=== PATIENT | female | born 1930 | race Caucasian/White ===

== ENCOUNTER → 2016-09-22 | Outpatient (CLI) | payer MEDICARE ==
[2014-11-11 13:56] VITALS: BP 201/84
[~2016-09-22] MED LIST: NITR100C62 PO; ONDA4TAB10 SL
[2016-09-22 09:44] LABS: BASO # 0.1 x10^3/uL (0.0-0.2); BASO % 1 % (0-3); EOS # 0.2 x10^3/uL (0.0-0.7); EOS % 3 % (0-3); HEMATOCRIT 38.3 % (36.0-47.0); HEMOGLOBIN 12.4 g/dL (12.0-15.5); LYMPH % 33 % (24-48); MEAN CORPUSCULAR HEMOGLOBIN 30 pg (25-35); MEAN CORPUSCULAR HGB CONC 32 g/dL (31-37); MEAN CORPUSCULAR VOLUME 93 fL (79-100); MONO # 0.5 x10^3/uL (0.0-1.1); MONO % 8 % (0-9); NEUT # 3.4 x10^3uL (1.8-7.7); NEUT % 55 % (31-73); PLATELET COUNT 174 x10^3/uL (140-400); RED BLOOD COUNT 4.11 x10^6/uL (3.50-5.40); RED CELL DISTRIBUTION WIDTH 13.9 % (11.5-14.5); WHITE BLOOD COUNT 6.2 x10^3/uL (4.0-11.0)
== END | disposition home or self-care (01) ==
LOC: LAB 09:11
PROVIDERS: ATTEND Anesthesiology Pain Medicine
DX: G89.18 Other acute postprocedural pain (principal)
CPT/HCPCS: 36415; 85027; 87641

== ENCOUNTER 2017-01-22 10:27 | Inpatient (IN) | payer MEDICARE ==
[~2017-01-22] VITALS: Ht 160 cm; Wt 73.3 kg
--- NOTE | 2017-01-22 11:49 | PHYS DOC ---
Past History Past Medical History: Arthritis, Hypertension, Other Past Surgical History: Appendectomy, Other Alcohol Use: None Drug Use: None Adult General Chief Complaint Chief Complaint: HIP PAIN HPI HPI Jaqueline states that she had a fall 1 week ago. She has been able to walk during the past week up to the past 3 days. She states that she was sitting in her chair and when she stood she had moderate dull pain in her thigh that was associated with difficulty walking. She states that since that time she has been unable to bear weight on R leg. She does not have pain Review of Systems Review of Systems Constitutional: Denies fever or chills [] Eyes: Denies change in visual acuity, redness, or eye pain [] HENT: Denies nasal congestion or sore throat [] Respiratory: Denies cough or shortness of breath [] Cardiovascular: No additional information not addressed in HPI [] GI: Denies abdominal pain, nausea, vomiting, bloody stools or diarrhea [] : Denies dysuria or hematuria [] Musculoskeletal: Denies back pain or joint pain [] Integument: Denies rash or skin lesions [] Neurologic: Denies headache, focal weakness or sensory changes [] Endocrine: Denies polyuria or polydipsia [] Allergies Allergies Allergies Coded Allergies Type Severity Reaction Last Updated Verified Penicillins Allergy Unknown 01/22/17 Yes Physical Exam Physical Exam Constitutional: Well developed, well nourished, no acute distress, non-toxic appearance. [] HENT: Normocephalic, atraumatic, bilateral external ears normal, oropharynx moist, no oral exudates, nose normal. [] Eyes: PERRLA, EOMI, conjunctiva normal, no discharge. [] Neck: Normal range of motion, no tenderness, supple, no stridor. [] Cardiovascular:Heart rate regular rhythm, no murmur [] Lungs & Thorax: Bilateral breath sounds clear to auscultation [] Abdomen: Bowel sounds normal, soft, no tenderness, no masses, no pulsatile masses. [] Skin: Warm, dry, no erythema, no rash. [] Back: No tenderness, no CVA tenderness. [] Extremities: no cyanosis, no clubbing, ROM intact, no edema. No pain with ROM of the R hip. No obvious signs of injury. Moderate TTP over the lateral hip. Pt was unable to bear weight with assistance Neurologic: Alert and oriented X 3, normal motor function, normal sensory function, no focal deficits noted. [] Psychologic: Affect normal, judgement normal, mood normal. [] Current Patient Data Vital Signs Vital Signs Date Time Temp Pulse Resp B/P (MAP) Pulse Ox O2 Delivery O2 Flow Rate FiO2 01/22/17 10:33 98.3 79 18 94 Room Air EKG EKG [] Radiology/Procedures Radiology/Procedures R hip and femur xray: No acute disease - [place] Course & Med Decision Making Course & Med Decision Making Jaqueline was unable to walk with assistance and she is from assisted living. Her PCP is Dr. Mann, who does not admit. The hospitalist was contacted by phone. Dr. Parikh would like Jaqueline admitted under inpatient status Dragon Disclaimer Dragon Disclaimer This chart was dictated in whole or in part using Voice Recognition software in a busy, high-work load, and often noisy Emergency Department environment. It may contain unintended and wholly unrecognized errors or omissions. Departure Departure: Impression: Primary Impression: Hip pain Disposition: ADMITTED INPATIENT Condition: STABLE Referrals: CARMINE MANN DO (PCP) Problem Qualifiers Primary Impression: Hip pain Laterality: right Qualified Codes: M25.551 - Pain in right hip BARBIE FAITH MD Jan 22, 2017 11:48
[2017-01-22 12:00] LABS: HEMATOCRIT 34.9 % (36.0-47.0); HEMOGLOBIN 11.4 g/dL (12.0-15.5); RED BLOOD COUNT 3.86 x10^6/uL (3.50-5.40); RED CELL DISTRIBUTION WIDTH 13.8 % (11.5-14.5); WHITE BLOOD COUNT 5.5 x10^3/uL (4.0-11.0)
[2017-01-22 12:03] LABS: CALCIUM 8.5 mg/dL (8.5-10.1); CREATININE 1.7 mg/dL (0.6-1.0); GFR 28.5; POTASSIUM 4.5 mmol/L (3.5-5.1)
[2017-01-22] MEDS ORDERED: ACETAMINOPHEN 325 MG TABLET PO PRN (12:30)
[2017-01-22] MEDS ORDERED: ONDANSETRON PF 4 MG/2 ML VIAL. IV PRN (12:30)
[2017-01-22] MEDS ORDERED: MORPHINE SULFATE 2 MG/ML DISP.SYRIN. IV PRN (12:30)
--- NOTE | 2017-01-22 13:22 | RAD ---
Indication hip pain. AP and lateral views of the right femur were obtained as well as AP and lateral views of the right hip. Views of the femur show no acute finding. There are some degenerative changes involving the knee. This involves particularly the medial joint space compartment. There is suspect chondrocalcinosis. Vascular calcification is noted. Views of the right hip demonstrate mild degenerative change manifested as some joint space compartment narrowing. An acute finding is not seen. IMPRESSION: Chronic changes involving the knee and hip. No acute finding seen
[2017-01-22 16:15] VITALS: BP 131/85
[2017-01-22] MEDS: IV NORMAL SALINE 1,000ML 1,000 ML IV SCH (17:16)
--- NOTE | 2017-01-22 17:49 | NUR ---
PT is able to verbalize understanding of poc and orientation to unit. PT had a fall with no injury than hip started to hurt. PT will not bear wt on leg. Kasie ALVARADO
[2017-01-22] MEDS ORDERED: GABA-585 PO (17:58)
[2017-01-22] MEDS ORDERED: CLOB15CR TP (19:15)
[2017-01-22] MEDS ORDERED: OXYC-323 PO (19:15)
[2017-01-22] MEDS ORDERED: MOME15CR13 TP (19:15)
[2017-01-22] MEDS ORDERED: IBUP400T18 PO (19:15)
[2017-01-22] MEDS ORDERED: DICL100G18 TP (19:15)
[2017-01-22] MEDS ORDERED: ASPI-612 PO (19:15)
[2017-01-22] MEDS ORDERED: LIDO700A39 TP (19:15)
[2017-01-22] MEDS ORDERED: MEMA7CAP PO (19:15)
[2017-01-22] MEDS ORDERED: LISI10TA2 PO (19:15)
[2017-01-22] MEDS ORDERED: CRAN500C6 PO (19:15)
[2017-01-22] MEDS ORDERED: LOPE2CAP88 PO ×2 (19:15)
[2017-01-22] MEDS ORDERED: SOLI5TAB2 PO (19:15)
[2017-01-22] MEDS ORDERED: SIME100L PO (19:15)
[2017-01-22] MEDS ORDERED: MAGN400O7 PO (19:15)
[2017-01-22] MEDS ORDERED: MAGNESIUM HYDROXIDE 2,400 MG/30 ML ORAL.SUSP. PO PRN (19:30)
[2017-01-22] MEDS ORDERED: LOPERAMIDE 2 MG CAPSULE PO PRN ×2 (19:30)
[2017-01-22] MEDS ORDERED: ASPIRIN ENTERIC COATED 81 MG TABLET.DR. PO PRN (19:30)
[2017-01-22] MEDS ORDERED: LIDOCAINE (700MG/PATCH) PATCH. TP PRN (19:30)
[2017-01-22 19:42] VITALS: BP 155/79
[2017-01-22] MEDS ORDERED: SIMETHICONE 80 MG TAB.CHEW PO PRN (20:15)
[2017-01-22] MEDS: DICLOFENAC SODIUM 1% TOPICAL GEL 100GM TUBE. TP SCH (20:33)
[2017-01-22] MEDS: GABAPENTIN 100 MG CAPSULE. PO SCH (20:34)
[2017-01-22] MEDS: IBUPROFEN 600 MG TABLET. PO PRN (20:34)
[2017-01-22] MEDS: CLOBETASOL EMOLLIENT 0.05% TOPICAL CREAM 15GM TUBE. TP SCH (21:00)
[2017-01-22] MEDS: oxyCODONE/APAP 5/325 1 TAB TABLET PO PRN (23:01)
[2017-01-22 23:15] VITALS: BP 177/84
[2017-01-23] MEDS: IV NORMAL SALINE 1,000ML 1,000 ML IV SCH ×2 (03:00→04:59)
--- NOTE | 2017-01-23 03:40 | ACF ---
Admission Criteria Forms PAIN MANAGEMENT GR Clinical Indications for Admission to Inpatient Care (Place 'X' for any and all applicable criteria): Hospital admission is needed for appropriate care of the patient because of 1 or more of the following are present (1)(2)(3)(4)(5): [ ]I. Severe pain requiring acute inpatient management as indicated by 1 or more of the following (2)(5)(10): [ ]a) Continuous or frequent (eg, every 2 to 4 hours) parenteral analgesics required [A] [ ]b) Necessity (ie, alternative approaches not effective) for analgesic regimen that can only be performed or initiated in inpatient setting [X]II. Pain causing debilitation to the point of inability to function or be supported at any other level of care [ ]III. Severe side effects from pain medications as indicated by ANY ONE of the following (12)(13)(14)(15): [ ]a) Uncontrollable seizures [ ]b) Cardiac arrhythmias of immediate concern [ ]c) Dehydration that is severe or persistent [ ]d) Vomiting that is severe or persistent [ ]e) Altered mental status that is severe or persistent [ ]f) Obstipation with inadequate GI function to maintain nutrition The original [employer] content created by [employer] has been revised. The portions of the content which have been revised are identified through the use of italic text or in bold, and [facility] has neither reviewed nor approved the modified material. All other unmodified content is copyright [employer]. Please see references footnoted in the original [employer] edition 2016 Admission Criteria Met?: Yes CORIN TODD Jan 23, 2017 03:40
[2017-01-23] MEDS: oxyCODONE/APAP 5/325 1 TAB TABLET PO PRN (05:04)
[2017-01-23 05:27] VITALS: BP 135/73
[2017-01-23 06:36] LABS: BASO # 0.1 x10^3/uL (0.0-0.2); BASO % 1 % (0-3); EOS # 0.4 x10^3/uL (0.0-0.7); EOS % 6 % (0-3); HEMOGLOBIN 11.2 g/dL (12.0-15.5); LYMPH % 31 % (24-48); MEAN CORPUSCULAR HEMOGLOBIN 29 pg (25-35); MEAN CORPUSCULAR HGB CONC 33 g/dL (31-37); MEAN CORPUSCULAR VOLUME 89 fL (79-100); MONO # 0.6 x10^3/uL (0.0-1.1); MONO % 9 % (0-9); NEUT # 3.4 x10^3uL (1.8-7.7); NEUT % 54 % (31-73); PLATELET COUNT 214 x10^3/uL (140-400); RED CELL DISTRIBUTION WIDTH 13.6 % (11.5-14.5); WHITE BLOOD COUNT 6.4 x10^3/uL (4.0-11.0)
[2017-01-23 06:48] LABS: CALCIUM 8.5 mg/dL (8.5-10.1); CREATININE 1.4 mg/dL (0.6-1.0); GFR 35.7; POTASSIUM 4.1 mmol/L (3.5-5.1)
[2017-01-23] MEDS: GABAPENTIN 100 MG CAPSULE. PO SCH (08:34)
[2017-01-23] MEDS: DICLOFENAC SODIUM 1% TOPICAL GEL 100GM TUBE. TP SCH (08:35)
[2017-01-23] MEDS: CLOBETASOL EMOLLIENT 0.05% TOPICAL CREAM 15GM TUBE. TP SCH (08:35)
[2017-01-23] MEDS: IBUPROFEN 600 MG TABLET. PO PRN (08:35)
[2017-01-23] MEDS ORDERED: OXYBUTYNIN CHLORIDE 5 MG TABLET PO SCH (09:00)
[2017-01-23] MEDS ORDERED: LISINOPRIL 10 MG TABLET PO SCH (09:00)
[2017-01-23] MEDS ORDERED: MEMANTINE 5 MG TABLET. PO SCH (09:00)
[2017-01-23] MEDS ORDERED: NON FORMULARY ITEM (Cranberry Extract (Cranberry) 500 MG) PO SCH (09:00)
[2017-01-23] MEDS ORDERED: TRIAMCINOLONE ACETONIDE 0.1% TOPICAL CREAM 15GM TUBE. TP SCH (09:00)
--- NOTE | 2017-01-23 09:11 | RAD ---
INDICATION: right sided lumbar radiculopathy and pain right hip COMPARISON: 07/13/2015 TECHNIQUE: Axial CT images were obtained through the lumbar spine without contrast. FINDINGS: There has been interval postkyphoplasty changes to the previously identified fracture at the L2 vertebral body. This fracture is moderate in severity with some retropulsion identified. No definite acute fracture or dislocation. Moderate hiatal hernia partially seen. Severe calcific atherosclerosis. Colonic diverticulosis. There are couple of nonobstructive bilateral renal stones. For example on the left measuring up to 13 mm. T12-L1: No significant central canal or neural foraminal stenosis. L1-2: Disc osteophyte complex indenting the ventral aspect of the thecal sac without significant central canal stenosis. Mild left-sided neural foraminal narrowing. L2-3: The patient's L2 fracture and osteophytes contribute to moderate central canal stenosis. Moderate to severe right and left neural foraminal stenosis. L3-4: Broad-based posterior disc protrusion with ligamentum flavum and facet hypertrophy. Mild central canal narrowing. Mild to moderate neural foraminal stenosis. L4-5: Facet and ligamentum flavum hypertrophy. Broad-based posterior disc bulge with mild central canal narrowing. Mild bilateral neural foraminal narrowing. L5-S1: Disc osteophyte complex without significant central canal narrowing. Moderate right and [id number] left neural foraminal stenosis IMPRESSION: No definite acute fracture or dislocation. Repeat demonstration of L2 compression fracture with interval postkyphoplasty changes. There is retropulsion into the central canal with resultant central canal narrowing. In addition there is multilevel neural foraminal stenosis identified throughout the lumbar spine as described above. PQRS Compliance Statement: One or more of the following individualized dose reduction techniques were utilized for this examination: 1. Automated exposure control 2. Adjustment of the mA and/or kV according to patient size 3. Use of iterative reconstruction technique
--- NOTE | 2017-01-23 09:22 | RAD ---
Indication fall. Pain in the right pelvis. Axial images through the pelvis were obtained and reformatted in the coronal and sagittal planes. Images were obtained and bony algorithm. In the ventral abdominal wall there is a small hernia containing only fat which appears uncomplicated. Benign-appearing calcifications are noted in the pelvis. Several diverticula are seen associated with the sigmoid colon. A significant soft tissue finding is not seen. There are degenerative changes at L5-S1. Facet degenerative changes are noted at the same level. No acute finding is seen involving the pelvis or either hip IMPRESSION: No acute bony finding PQRS Compliance Statement: One or more of the following individualized dose reduction techniques were utilized for this examination: 1. Automated exposure control 2. Adjustment of the mA and/or kV according to patient size 3. Use of iterative reconstruction technique
[2017-01-23 10:51] VITALS: BP 112/71
--- NOTE | 2017-01-23 13:18 | RAD ---
INDICATION:pain right hip after a fall with inability to walk COMPARISON: CT from earlier same day FINDINGS: 25 mCi of technetium 99m MDP injected intravenously and time was allowed for osseous uptake. Images were then obtained of the pelvis and hips. There are some patchy foci of increased radiotracer uptake seen within the partially visualized lumbar spine. There is a region of increased radiotracer uptake seen within the right proximal femur including within the right greater and lesser trochanter region. IMPRESSION: Increased radiotracer uptake is seen within the right proximal femur including at the greater and lesser trochanter region. Given this region of increased radiotracer uptake causes such as a bone contusion or occult fracture is possible. If further characterization is desired MRI could be obtained. There is also some patchy increased radiotracer uptake seen within a portion of the lower lumbar spine. Could be degenerative in nature or secondary to the patient's known L2 fracture with postkyphoplasty changes.
[2017-01-23 14:42] VITALS: BP 132/76
--- NOTE | 2017-01-23 15:04 | PDOC ---
SUBJECTIVE: The patient continues to complain of right hip pain although she was able to put on weight and using a walker. CT scan of the pelvis did not show any however the bone scan with increased uptake at the proximal end of the femur suggesting possible fracture we have discussed the various options available and the major case detective suggested regarding her to [facility] to do the MRI and consult orthopedic surgeon. OBJECTIVE: Problems: Hip pain with difficulty walking Pain in the right hip difficulty walking Vital Signs: Vital Signs Date Time Temp Pulse Resp B/P (MAP) Pulse Ox O2 Delivery O2 Flow Rate FiO2 01/23/17 10:51 98.1 76 20 112/71 (85) 92 Room Air I & O Intake and Output 01/23/17 07:00 Intake Total 1569 ml Output Total 150 ml Balance 1419 ml Intake Oral 800 ml IV Total 769 ml Output Urine Total 150 ml # Voids 2 Labs: Laboratory Tests Test 01/22/17 11:45 01/23/17 05:56 White Blood Count 5.5 x10^3/uL (4.0-11.0) 6.4 x10^3/uL (4.0-11.0) Red Blood Count 3.86 x10^6/uL (3.50-5.40) 3.80 x10^6/uL (3.50-5.40) Hemoglobin 11.4 g/dL (12.0-15.5) 11.2 g/dL (12.0-15.5) Hematocrit 34.9 % (36.0-47.0) 34.0 % (36.0-47.0) Mean Corpuscular Volume 90 fL (79-100) 89 fL (79-100) Mean Corpuscular Hemoglobin 29 pg (25-35) 29 pg (25-35) Mean Corpuscular Hemoglobin Concent 33 g/dL (31-37) 33 g/dL (31-37) Red Cell Distribution Width 13.8 % (11.5-14.5) 13.6 % (11.5-14.5) Platelet Count 211 x10^3/uL (140-400) 214 x10^3/uL (140-400) Sodium Level 140 mmol/L (136-145) 139 mmol/L (136-145) Potassium Level 4.5 mmol/L (3.5-5.1) 4.1 mmol/L (3.5-5.1) Chloride Level 107 mmol/L (98-107) 105 mmol/L (98-107) Carbon Dioxide Level 31 mmol/L (21-32) 27 mmol/L (21-32) Anion Gap 2 (6-14) 7 (6-14) Blood Urea Nitrogen 21 mg/dL (7-20) 18 mg/dL (7-20) Creatinine 1.7 mg/dL (0.6-1.0) 1.4 mg/dL (0.6-1.0) Estimated GFR (Cockcroft-Gault) 28.5 35.7 Glucose Level 93 mg/dL (70-99) 80 mg/dL (70-99) Calcium Level 8.5 mg/dL (8.5-10.1) 8.5 mg/dL (8.5-10.1) Neutrophils (%) (Auto) 54 % (31-73) Lymphocytes (%) (Auto) 31 % (24-48) Monocytes (%) (Auto) 9 % (0-9) Eosinophils (%) (Auto) 6 % (0-3) Basophils (%) (Auto) 1 % (0-3) Neutrophils # (Auto) 3.4 x10^3uL (1.8-7.7) Lymphocytes # (Auto) 2.0 x10^3/uL (1.0-4.8) Monocytes # (Auto) 0.6 x10^3/uL (0.0-1.1) Eosinophils # (Auto) 0.4 x10^3/uL (0.0-0.7) Basophils # (Auto) 0.1 x10^3/uL (0.0-0.2) Physical Exam: Constitutional: Well developed, well nourished, no acute distress, non-toxic appearance. HENT: Normocephalic, atraumatic, bilateral external ears normal, oropharynx moist, no oral exudates, nose normal. Eyes: CAYETANO, EOMI, conjunctiva normal, no discharge. Neck: Normal range of motion, no tenderness, supple, no stridor. Cardiovascular: JVP not elevated. No carotid bruit. Nor precordial pulsations or heaves. S1 N,S2N. No murmurs. No rubs or clicks. Thorax and Lungs: NOrmal respiration. Normal chest expansion. Normal to percuss. Equal breath sounds. No crackles. No wheeze. Abdomen: Bowel sounds normal, soft, no tenderness, no masses, no pulsatile masses. Skin: Warm, dry, no erythema, no rash. Back: No tenderness, no CVA tenderness. Extremities: Intact distal pulses, no tenderness, no cyanosis, no clubbing, ROM intact, no edema. Neurologic: Alert and oriented X 3, normal motor function, normal sensory function, no focal deficits noted. Psychologic: Affect normal, judgement normal, mood normal. ASSESSMENT: 1 right hip pain 2. Difficulty walking 3. Bone scan showed increased uptake in the proximal end of the right femurr PLAN: 1. Arranged to transfer the patient to [facility] 2. Age for an MRI of the right hip joint 3. Consult the orthopedic surgeon to decide whether any surgical intervention is needed CHARITO ADAMS MD Jan 23, 2017 15:03
--- NOTE | 2017-01-23 16:00 | NUR ---
Patient transferred to [facility] room 432 for MRI and ortho consult, r/o right femur fracture. Report called to JENNY Bello. Patient transported via [facility]. Belongings and chart sent with patient.
--- NOTE | 2017-01-24 12:24 | PDOC1 ---
History of Present Illness Reason for Visit: pain the right hip and inability to walk History of Present Illness The patient is a resident at [facility]. She developed pain in her hip with inability to walk about a week ago She came to the ER of [facility] where an X ray of her right hip was negative for fracture . She was admitted for further evaluation Has mary ann a CT Scan of her lumbosacral spine showed old compression fracture treated with vertebroplasty and CT Scan of the pelvis and both hip joints were unremarkable Bone scan of the right hip showed increased uptake at the proximal end of the right femur and therefore the patient was transferred to [facility] TO DO AN mri of the area and consult the orthopedic surgeon Chief Complaint: HIP PAIN Allergies: Coded Allergies: Penicillins (Verified Allergy, Unknown, 01/22/17) Past Medical History Cardiac: No pertinent hx, CHF, HTN Pulmonary: No pertinent hx GI: No pertinent hx Heme/Onc: No pertinent hx Hepatobiliary: No pertinent hx Psych: No pertinent hx Musculoskeletal: low back pain (Chronic), Osteoarthritis Infectious disease: No pertinent hx ENT: No pertinent hx Renal/: Chronic renal insuff Past Surgical History: Other (vertebroplasty) Family History: No pertinent hx Past Social History Smoke: No Alcohol: none Lives: Alone Review of Systems Review Of Systems Fourteen system , review of systems has been reviewed. See HPI for pertinent positives and negative responses, other alexis all other systems are negative, non pertinent or non contributory Allergies: Coded Allergies: Penicillins (Verified Allergy, Unknown, 01/22/17) Medications Current Medications Ondansetron HCl (Zofran) 4 mg PRN Q4HRS PRN IV NAUSEA/VOMITING; Start 01/22/17 at 12:30; Stop 01/23/17 at 12:29; Status DC Morphine Sulfate (Morphine 2mg Syringe) 2 mg PRN Q2HR PRN IV PAIN; Start at 12:30; Stop 01/23/17 at 10:07; Status DC Acetaminophen (Tylenol) 650 mg PRN Q4HRS PRN PO FEVER; Start 01/22/17 at 12:30 ; Stop 01/23/17 at 12:29; Status DC Sodium Chloride 1,000 ml @ 100 mls/hr Q10H IV Last administered on 01/23/17t 04:59; Start 01/22/17 at 17:00; Stop 01/23/17 at 16:54; Status DC Aspirin (Aspirin Enteric Coated) 81 mg PRN DAILY PRN PO PAIN; Start 01/22/17 at 19:30; Stop 01/23/17 at 16:54; Status DC Diclofenac Sodium (Voltaren) 1 ming BID TP Last administered on 01/23/17 08:35 ; Start 01/22/17 at 21:00; Stop 01/23/17 at 16:54; Status DC Gabapentin (Neurontin) 100 mg BID PO Last administered on 01/23/17 08:34; Start 01/22/17 at 21:00; Stop 01/23/17 at 16:54; Status DC Ibuprofen (Motrin) 600 mg PRN Q6HRS PRN PO PAIN Last administered on 01/23/17 08:35; Start 01/22/17 at 19:30; Stop 01/23/17 at 16:54; Status DC Lidocaine (Lidoderm) 1 patch PRN DAILY PRN TP PAIN; Start 01/22/17 at 19:30; Stop 01/23/17 at 16:54; Status DC Lisinopril (Prinivil) 10 mg DAILY PO Last administered on 01/23/17 08:35; Start 01/23/17 at 09:00; Stop 01/23/17 at 16:54; Status DC Loperamide HCl (Imodium) 2 mg PRN Q2HR PRN PO DIARRHEA; Start 01/22/17 at 19:30 ; Stop 01/23/17 at 16:54; Status DC Loperamide HCl (Imodium) 4 mg PRN DAILY PRN PO DIARRHEA; Start 01/22/17 at 19: 30; Stop 01/23/17 at 16:54; Status DC Magnesium Hydroxide (Milk Of Magnesia) 2,400 mg PRN Q72HRS PRN PO CONSTIPATION ; Start 01/22/17 at 19:30; Stop 01/23/17 at 16:54; Status DC Oxycodone/ Acetaminophen (Percocet 5/325) 1 tab PRN Q6HRS PRN PO PAIN Last administered on 01/23/17 05:04; Start 01/22/17 at 19:30; Stop 01/23/17 at 16:54 ; Status DC Clobetasol Propionate 1 ming BID TP ; Start 01/22/17 at 21:00; Stop 01/23/17 at 16:54; Status DC Non-Formulary Medication 500 mg DAILY PO ; Start 01/23/17 at 09:00; Status UNV Memantine (Namenda) 2.5 mg BID PO Last administered on 01/23/17 08:34; Start 01/23/17 at 09:00; Stop 01/23/17 at 16:54; Status DC Triamcinolone Acetonide (Kenalog) 1 ming DAILY TP ; Start 01/23/17 at 09:00; Stop 01/23/17 at 16:54; Status DC Simethicone (Gas-X) 80 mg PRN Q4HRS PRN PO HEARTBURN / GAS; Start 01/22/17 at 20:15; Stop 01/23/17 at 16:54; Status DC Oxybutynin Chloride (Ditropan) 5 mg BID PO Last administered on 01/23/17 08:34 ; Start 01/23/17 at 09:00; Stop 01/23/17 at 16:54; Status DC Active Scripts Active Reported Elocon (Mometasone Furoate) 15 Gm Cream..g. 1 Ming TP DAILY Ibuprofen 400 Mg Tablet 1.5 Tab PO PRN Q6HRS PRN Lidocaine 1 Each Adh..patch 1 Each TP PRN DAILY PRN Vesicare (Solifenacin Succinate) 5 Mg Tablet 1 Tab PO DAILY Cranberry (Cranberry Extract) 500 Mg Capsule 500 Mg PO DAILY Namenda Xr (Memantine Hcl) 7 Mg Cap.spr.24 7 Mg PO DAILY Clobetasol Propionate 15 Gm Cream..g. 1 Ming TP BID Lisinopril 10 Mg Tablet 1 Tab PO DAILY Aspirin Ec (Aspirin) 81 Mg Tablet.dr 1 Tab PO DAILY PRN Imodium A-D (Loperamide HCl) 2 Mg Capsule 4 Mg PO PRN DAILY PRN Percocet 5-325 Mg Tablet (Oxycodone Hcl/Acetaminophen) 1 Each Tablet 1 Tab PO PRN Q6HRS PRN Imodium A-D (Loperamide HCl) 2 Mg Capsule 2 Mg PO PRN PRN Simethicone 100 Ml Liquid 30 Ml PO PRN Q4HRS PRN Voltaren (Diclofenac Sodium) 100 Gm Gel..gram. 2 Gm TP BID Milk Of Magnesia (Magnesium Hydroxide) 400 Mg/5 Ml Oral.susp 30 Ml PO PRN Q72HRS PRN Gabapentin 100 Mg Capsule 100 Mg PO BID Exam Vital Signs Vital Signs Date Time Temp Pulse Resp B/P (MAP) Pulse Ox O2 Delivery O2 Flow Rate FiO2 01/23/17 14:42 98.0 73 20 132/76 (94) 96 Room Air General Appearance: Alert, Oriented X3, No acute distress HEENT: Atraumatic, PERRLA, EOMI Respiratory: Clear to auscultation, Normal air movement Heart: Regular rate, Normal S1, Normal S2, No murmurs, Rubs Cardiac: HTN Abdominal: Normal bowel sounds, Soft, No tenderness Extremities: No clubbing, No cyanosis, No edema Skin: No rashes, No breakdown Neuro: Other (The patient is unable to walk due to pain inthe right hip joint) Psych/Mental Status: Mental status NL, Mood NL Assessment/Plan Assessment/Plan Right hip pain with abnormal radioisotope intake at the proximal end of the right femur Plan is to 1. continue I V Fluid 2. continue with pain management 3. arrange for right hip and right femur MRI 4. To consult the orthopedic surgeon once the MRI report is available COURSE Allergies Coded Allergies Type Severity Reaction Last Updated Verified Penicillins Allergy Unknown 01/22/17 Yes I & O 01/23/17 23:59 Intake Total 1549 ml Balance 1549 ml Vital Signs Date Time Temp Pulse Resp B/P (MAP) Pulse Ox O2 Delivery O2 Flow Rate FiO2 01/23/17 14:42 98.0 73 20 132/76 (94) 96 Room Air CHARITO ADAMS MD Jan 24, 2017 12:24
== END 2017-01-23 16:00 | disposition short-term general hospital (02) | DRG 555 ==
LOC: ER 10:27 → 1 SOUTH 12:22 → OBSVTOIN 12:22
PROVIDERS: ADMIT Internal Medicine; ATTEND Internal Medicine
DX: M25.551 Pain in right hip (principal); N17.0 Acute kidney failure with tubular necrosis; E43 Unspecified severe protein-calorie malnutrition; I10 Essential (primary) hypertension; M19.90 Unspecified osteoarthritis, unspecified site; R26.2 Difficulty in walking, not elsewhere classified; Z90.49 Acquired absence of other specified parts of digestive tract; Z88.0 Allergy status to penicillin
CPT/HCPCS: 36415; 72131; 72192; 73502; 73552; 78300; 80048; 85027; 87641; 96374; A9503; 99285-25; J7030

== ENCOUNTER → 2018-05-24 | Outpatient (CLI) | payer MEDICARE ==
[~2018-05-24] MED LIST changes: +ASPI-612 PO; +CLOB15CR TP; +CRAN500C6 PO; +DICL100G18 TP; +GABA-585 PO; +IBUP400T18 PO; +LIDO700A39 TP; +LISI10TA2 PO; +LOPE2CAP88 PO; +MAGN400O7 PO; +MEMA7CAP PO; +MOME15CR13 TP; +OXYC-323 PO; +SIME100L PO; +SOLI5TAB2 PO
--- NOTE | 2018-05-24 10:41 | RAD ---
ESOPHOGRAM/BARIUM SWALLOW History: Dysphagia, feels like food getting stuck for a few months, history of previous esophageal dilatation Comparison: None. Findings: Barium esophagram was performed. Bowl Turner radiograph was performed. There is airspace opacity of the left lung base not clearly seen previously. There is suspected emphysema. There were tertiary contractions most notable of the mid to distal esophagus although otherwise effective esophageal motility. Esophagus is not significantly dilated. There is compression upon the mid esophagus by the aortic arch. There is a small sliding hiatal hernia, associated mild stricture formation without significant flow limitation. Fluoroscopy time: 1.3 minutes, 113 images Impression: 1. 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 There is small sliding hiatal hernia, minimal associated stricture without significant flow limitation. 2. There is some airspace opacity at the left lung base possibly infiltrate not clearly seen on previous chest radiograph for which short-term follow-up such as in 2 months advised. There is suspected emphysema. Electronically signed by: Pavel Miller MD (05/24/2018 10:38 AM) [id number]
== END | disposition home or self-care (01) ==
LOC: RAD 08:16
PROVIDERS: ATTEND Internal Medicine Gastroenterology
DX: K22.8 Other specified diseases of esophagus (principal); K44.9 Diaphragmatic hernia without obstruction or gangrene
CPT/HCPCS: 74220

== ENCOUNTER 2019-05-26 10:54 | Emergency (ER) | payer MEDICARE ==
[~2019-05-26] VITALS: Ht 312.4 cm; Wt 73.0 kg
[~2019-05-26 10:54] MED LIST changes: +LIDO700A21 TP; -LIDO700A39 TP; +LOPE-101 PO; -LOPE2CAP88 PO; -OXYC-323 PO; +OXYC1TAB15 PO
--- NOTE | 2019-05-26 11:30 | RAD ---
EXAM: Head CT without contrast. HISTORY: Headache. TECHNIQUE: Computed tomographic images of the head were obtained without contrast.. *One or more of the following individualized dose reduction techniques were utilized for this examination: 1. Automated exposure control. 2. Adjustment of the mA and/or kV according to patient size. 3. Use of iterative reconstruction technique. COMPARISON: 08/14/2014. FINDINGS: There is no acute or subacute extra-axial or intraparenchymal hemorrhage. There is no mass effect or midline shift. There is no hydrocephalus. There are areas of decreased attenuation within the cerebral white matter, nonspecific and likely related to chronic small vessel disease. There is cerebral volume loss. There is evidence of lens surgery. There is mild mucosal thickening involving the sphenoid sinus. There is a tiny amount of fluid within the mastoid air cells. No suspicious calvarial lesion is seen. IMPRESSION: 1. No acute intracranial finding. Note is made that MRI is more sensitive for acute infarction. 2. Decreased attenuation within the cerebral white, likely due to chronic small vessel disease. Electronically signed by: Smita Jason MD (05/26/2019 11:27 AM) [id number]
--- NOTE | 2019-05-26 11:43 | PHYS DOC ---
Past History Past Medical History: Arthritis, Hypertension, Other Past Surgical History: Appendectomy, Other Alcohol Use: None Drug Use: None Adult General Chief Complaint Chief Complaint: HEADACHE HPI HPI Patient is a 89 year old F who presents with sudden onset of severe headache's morning. She says that this is similar to her typical headaches however it did not improve as fast as it typically does with [id number] pain medications. She states that her pain was improving prior to evaluation. Upon evaluation by the doctor her pain was 2 out of 10. She states that her headache is currently similar to previous headaches associated with weather. She denies any other associated symptoms. She also describes hearing loss in the left ear more than the right. Review of Systems Review of Systems Constitutional: Denies fever or chills [] Eyes: Denies change in visual acuity, redness, or eye pain [] HENT: Denies nasal congestion or sore throat [] Respiratory: Denies cough or shortness of breath [] Cardiovascular: No additional information not addressed in HPI [] GI: Denies abdominal pain, nausea, vomiting, bloody stools or diarrhea [] : Denies dysuria or hematuria [] Musculoskeletal: Denies back pain or joint pain [] Integument: Denies rash or skin lesions [] Neurologic: Denies focal weakness or sensory changes [] Endocrine: Denies polyuria or polydipsia [] All other systems were reviewed and found to be within normal limits, except as documented in this note. Family History Family History No pertinent medical history was reported Current Medications Current Medications Current medications were reviewed Allergies Allergies Allergies Coded Allergies Type Severity Reaction Last Updated Verified Penicillins Allergy Unknown 01/22/17 Yes Physical Exam Physical Exam Constitutional: Well developed, well nourished, no acute distress, non-toxic appearance. [] HENT: Normocephalic, atraumatic, moderate cerumen impaction noted in the left ear with mild cerumen impaction noted in the right Eyes: PERRLA, EOMI, conjunctiva normal, no discharge. [] Neck: Normal range of motion, no tenderness, supple, no stridor. [] Cardiovascular:Heart rate regular rhythm, no murmur [] Lungs & Thorax: Bilateral breath sounds clear to auscultation [] Abdomen: Bowel sounds normal, soft, no tenderness, no masses, no pulsatile masses. [] Skin: Warm, dry, no erythema, no rash. Extremities: No tenderness, no cyanosis, no clubbing, ROM intact, no edema. [] Neurologic: Alert and oriented X 3, normal motor function, normal sensory function, no focal deficits noted. [] Psychologic: Affect normal, judgement normal, mood normal. [] EKG EKG [] Radiology/Procedures Radiology/Procedures Head CT without contrast Course & Med Decision Making Course & Med Decision Making Pertinent Labs and Imaging studies reviewed. (See chart for details) [] Dragon Disclaimer Dragon Disclaimer This electronic medical record was generated, in whole or in part, using a voice recognition dictation system. Her daughter requested that a UA be done. Jaqueline denies any urinary symptoms. She states that her symptoms have resolved. The results of her UA were discussed with Jaqueline and her daughter. Antibiotics were offered and declined at this time. It was recommended that if she develops any symptoms that she be evaluated as soon as possible Departure Departure: Impression: Primary Impression: Headache Additional Impression: Impacted cerumen of both ears Disposition: 01 HOME, SELF-CARE Condition: STABLE Referrals: CHARITO ADAMS MD (PCP) Patient Instructions: Cerumen Impaction, General Headache Without Cause Additional Instructions: Jaqueline was seen in the emergency department for headache. No emergency medical condition was found on history or physical exam. She did have a normal CT scan of her head. She had normal urinalysis. She was found to have wax in both ears. She was encouraged to follow-up with an rn case management or an ear nose and throat doctor. She is advised follow up with her primary care doctor as needed for headaches. She is advised to return the emergency room if she develops new or worsening symptoms. Problem Qualifiers Primary Impression: Headache Headache type: unspecified Headache chronicity pattern: acute headache Intractability: not intractable Qualified Codes: R51 - Headache BARBIE FAITH MD May 26, 2019 11:43
[2019-05-26 12:13] LABS: BACTERIA,URINE 0 /HPF (0-FEW); BILIRUBIN,URINE NEG (NEG); CLARITY,URINE HAZY; COLOR,URINE YELLOW; GLUCOSE,URINE NEG (NEG); NITRITE,URINE NEG (NEG); SQUAMOUS EPITHELIAL CELL,UR MOD /LPF; UROBILINOGEN,URINE 0.2 mg/dL (0.2 mg/dL)
[2019-05-26 12:51] VITALS: BP 155/81
== END 2019-05-26 12:51 | disposition home or self-care (01) ==
LOC: ER 10:54
DX: R51 Headache (principal); H61.23 Impacted cerumen, bilateral; M19.90 Unspecified osteoarthritis, unspecified site; I10 Essential (primary) hypertension; Z88.0 Allergy status to penicillin
CPT/HCPCS: 70450; 81001; 99285